=== PATIENT | male | born 1955 | race Caucasian/White ===

== ENCOUNTER 2017-03-05 16:25 | Inpatient (IN) | payer OTHER ==
[~2017-03-05] VITALS: Ht 177.8 cm; Wt 83.0 kg
[~2017-03-05 16:25] MED LIST: ALLOPURINOL1 POW; ASPIRIN 32325 MG/TAB PO; DESYREL 50MG50 MG PO; INDERAL40 MG PO; LIPITOR 40MG TA40 MG PO; LIPITOR80 MG PO; LISINOPRIL1 POW; NEURONTIN300 MG/CAP PO; NITROSTAT0.4 MG/TAB SL; NORVASC 5MG5 MG/TAB PO; PLAVIX 75MG TAB75 MG PO; PRIL40 PO; PROTONIX 40MG T40 MG PO; ZESTRIL 10MG10 MG PO; ZYLOPRIM 100MG100 MG PO
[2017-04-16] VITALS (9 sets, daily range): BP systolic 92–152; BP diastolic 58–88; PULSE 16–88; TEMP 98–98.4
[2017-04-16] MEDS ORDERED: LIVALO2 MG PO (09:16)
[2017-04-16] MEDS ORDERED: ALLEGRA ALLERG180 MG PO (09:17)
[2017-04-16] MEDS ORDERED: VITAMIN C500 MG PO (09:17)
[2017-04-16] MEDS ORDERED: VITAMIN D31000 I1 PO (09:18)
[2017-04-17 00:17] VITALS: BP 101/65; PULSE 70; TEMP 98.4
[2017-04-17 04:30] LABS: HEMOGLOBIN 14.9 g/dl (13.5-18.0)
[2017-04-17 04:48] VITALS: BP 102/53; PULSE 58; TEMP 97.5
[2017-04-17 07:58] VITALS: BP 115/71; PULSE 76; TEMP 97.9
[2017-04-17 11:56] VITALS: BP 125/78; PULSE 72; TEMP 97.1
[2017-04-17] MEDS ORDERED: ASPIRIN 32325 MG/TAB PO (16:04)
[2017-04-17] MEDS ORDERED: NORCO 325 MG-7.1 TAB PO (16:05)
[2017-04-17] MEDS ORDERED: ROXICODONE 55 MG/TAB PO (16:06)
== END 2017-04-17 17:07 | disposition home or self-care (01) | DRG 470 ==
LOC: JCC 04-16 08:37
PROVIDERS: Orthopaedic Surgery
PROC: 0SRD0J9 Replacement of Left Knee Joint with Synthetic Substitute, Cemented, Open Approach (ICD-10-PCS; principal; 2017-04-16 13:30)
DX: M17.12 Unilateral primary osteoarthritis, left knee (principal)
CPT/HCPCS: A4315; A9284; C1713; C1776; J0690; J1100; J1885; J2250; J2405; J2704; J3010; J7120

== ENCOUNTER → 2017-03-19 | Outpatient (CLI) | payer OTHER ==
[2017-03-19 14:57] LABS: HIV 1/2 Antibodies Non-Reactive; HIV-1p24 Antigen Non-Reactive
== END ==
LOC: COL.LAB 13:35
PROVIDERS: Orthopaedic Surgery
DX: Z01.812 Encounter for preprocedural laboratory examination (principal)

== ENCOUNTER 2018-02-19 19:53 | Emergency (ER) | payer BC ==
[~2018-02-19] VITALS: Ht 177.8 cm; Wt 81.8 kg
[~2018-02-19 19:53] MED LIST changes: +ALLEGRA ALLERG180 MG PO; +LIVALO2 MG PO; +NORCO 325 MG-7.1 TAB PO; +ROXICODONE 55 MG/TAB PO; +VITAMIN C500 MG PO; +VITAMIN D31000 I1 PO
[2018-02-19 19:54] VITALS: TEMP 98
[2018-02-19] MEDS ORDERED: INDERAL 20MG20 MG PO (20:22)
[2018-02-19 20:50] LABS: BASO % 0.3 % (0.0-2.0); EOS % 0.1 % (0-4.0); GRAN # 9.8 (1.4-6.5); GRAN % 85.9 % (42.2-75.2); HEMATOCRIT 51.9 % (42.0-52.0); HEMOGLOBIN 17.9 g/dl (13.5-18.0); LYMPH # 0.6 (1.2-3.4); LYMPH % 5.2 % (20.0-51.0); MEAN CELL VOLUME 89 fl (80.0-100.0); MEAN CORPUSCULAR HEMOGLOBIN 31 pg (27.0-31.0); MEAN CORPUSCULAR HGB CONC 35 g/dl (33.0-37.0); MEAN PLATELET VOLUME 9.6 fl (7.4-10.4); MONO # 0.9 (0.1-0.6); MONO % 8.1 % (1.7-9.3); PLATELET COUNT 226 K/mm3 (130-400); RED BLOOD COUNT 5.86 M/mm3 (4.20-5.60)
[2018-02-19 20:50] LABS: COLLECTION METHOD CLEAN CATCH
[2018-02-19 21:03] LABS: ALBUMIN 4.2 gm/dL (3.5-5.0); BILIRUBIN,TOTAL 0.7 mg/dL (0.0-1.0); C-REACTIVE PROTEIN 0.9 mg/dL (0.0-0.9); CALCIUM 9.3 mg/dL (8.4-10.2); CREATININE, serum 1.32 mg/dL (0.66-1.25); POTASSIUM 5.3 mmol/L (3.4-5.0); TOTAL PROTEIN 7.4 gm/dL (6.4-8.2)
[2018-02-19 21:04] LABS: MUCOUS Present /lpf; PH 5 (5-8); SQUAMOUS EPITHELIAL None Seen /hpf; URINE APPEARANCE Clear; URINE BACTERIA None Seen /hpf; URINE BILIRUBIN Negative (NEGATIVE); URINE BLOOD 3+ (NEGATIVE); URINE COLOR Yellow; URINE GLUCOSE Negative (NEGATIVE); URINE KETONE 1+ (NEGATIVE); URINE LEUKOCYTE ESTERASE Negative (NEGATIVE); URINE NITRATE Negative (NEGATIVE); URINE PROTEIN(semi-quant) 1+ (NEGATIVE); URINE RBC >50 /hpf; URINE UROBILINOGEN Negative (NEGATIVE)
[2018-02-19] MEDS ORDERED: PERCOCET 325 MG1 TA2 PO (21:42)
[2018-02-19] MEDS ORDERED: ZOFRAN 4MG T4 MG/TAB PO (21:42)
[2018-02-19 21:57] VITALS: BP 131/87; PULSE 80
== END 2018-02-19 22:00 | disposition home or self-care (01) ==
LOC: COL.ER 19:53
PROVIDERS: Emergency Medicine
DX: N20.2 Calculus of kidney with calculus of ureter (principal); N23 Unspecified renal colic; I10 Essential (primary) hypertension; E78.5 Hyperlipidemia, unspecified; Z87.442 Personal history of urinary calculi; I25.10 Atherosclerotic heart disease of native coronary artery without angina pectoris; Z98.890 Other specified postprocedural states; Z95.5 Presence of coronary angioplasty implant and graft; Z79.82 Long term (current) use of aspirin
CPT/HCPCS: J1170; J2405; J7030

== ENCOUNTER 2018-02-21 10:50 | Day surgery (SDC) | payer BC ==
[~2018-02-21] VITALS: Ht 177.8 cm; Wt 82.9 kg
[~2018-02-21 10:50] MED LIST changes: +INDERAL 20MG20 MG PO; +PERCOCET 325 MG1 TA2 PO; +ZOFRAN 4MG T4 MG/TAB PO
[2018-02-21] MEDS ORDERED: NEURONTIN300 MG/CAP PO (11:18)
[2018-02-21] MEDS ORDERED: NEURONTIN100 MG/CAP PO (11:18)
[2018-02-21 11:22] VITALS: BP 156/86; PULSE 72; TEMP 99.2
[2018-02-21] MEDS ORDERED: SENOKOT8.6 MG PO (11:22)
[2018-02-21 13:00] VITALS: BP 127/79; PULSE 74; TEMP 98.3
[2018-02-21 13:15] VITALS: BP 131/85; PULSE 92
[2018-02-21 13:16] VITALS: TEMP 97.7
[2018-02-21 13:30] VITALS: BP 136/91; PULSE 67
[2018-02-21 13:45] VITALS: BP 128/78; PULSE 92
== END 2018-02-21 14:20 | disposition home or self-care (01) ==
LOC: SDCO 10:50
DX: N20.1 Calculus of ureter (principal); Q62.5 Duplication of ureter; E78.00 Pure hypercholesterolemia, unspecified; I10 Essential (primary) hypertension; I25.2 Old myocardial infarction; I25.10 Atherosclerotic heart disease of native coronary artery without angina pectoris; K21.9 Gastro-esophageal reflux disease without esophagitis; M19.90 Unspecified osteoarthritis, unspecified site; Z79.82 Long term (current) use of aspirin; Z96.652 Presence of left artificial knee joint; Z87.891 Personal history of nicotine dependence; Z85.46 Personal history of malignant neoplasm of prostate
CPT/HCPCS: C1769; C2617; J0690; J1100; J2405; J2704; J3010; J7120

== ENCOUNTER → 2020-01-27 | Outpatient (CLI) | payer BC ==
[~2020-01-27] MED LIST changes: +NEURONTIN100 MG/CAP PO; +SENOKOT8.6 MG PO
== END ==
LOC: ZCOL.LAB 17:03
DX: Z20.828 Contact with and (suspected) exposure to other viral communicable diseases (principal)

== ENCOUNTER → 2021-10-14 | Outpatient (CLI) | payer MEDICARE, OTHER | LOC: COL.RAD 06:54 | DX: Z13.6 Encounter for screening for cardiovascular disorders (principal); Z87.891 Personal history of nicotine dependence ==

== ENCOUNTER 2023-09-18 13:30 | Outpatient (RCR) | payer MEDICARE, OTHER ==
[~2023-09-18 13:30] MED LIST changes: +ASPIRIN E.C. 8181 MG PO; +DESYREL DIVIDO150 M1 PO; +MULTI VITAMINS1 TAB PO; +NEXIUM 40MG40 MG PO; +PRAVACHOL 40MG40 MG PO; +UROCIT-K15 MEQ PO; +ZETIA 10MG TAB10 MG PO
== END 2023-09-20 | disposition home or self-care (01) ==
LOC: WSPT
DX: R42 Dizziness and giddiness (principal)

== ENCOUNTER 2023-09-21 10:44 | Outpatient (RCR) | payer MEDICARE, OTHER | END 2023-10-21 | disposition home or self-care (01) | LOC: WSPT | DX: H81.10 Benign paroxysmal vertigo, unspecified ear (principal) ==

== ENCOUNTER 2024-01-18 16:27 | Outpatient (RCR) | payer MEDICARE, OTHER | END 2024-01-20 | disposition home or self-care (01) | LOC: COL.CR | DX: Z48.812 Encounter for surgical aftercare following surgery on the circulatory system (principal); Z95.1 Presence of aortocoronary bypass graft ==